=== PATIENT | female | born 1985 | race Caucasian/White ===

== ENCOUNTER → 2016-11-13 | Outpatient (CLI) | payer MEDICAID, OTHER ==
[~2016-11-13] MED LIST: AMPI250C9 PO; AMPI500C8 PO; FERR325T PO; PERC5TAB12 PO; PREN1CAP7 PO; PRENTAB16 PO; TIOC1OIN3 VAGINAL
[2016-11-13 12:35] LABS: BLOOD, URINE SMALL (NEG); GLUCOSE,URINE NEG (NEG); KETONE, URINE NEG (NEG); NITRITE,URINE NEG (NEG); SQUAMOUS EPITHELIAL CELL URINE 1 /hpf (0-5); URINE COLOR LIGHT-YELLOW (YELLW/STRAW)
[2016-11-13 12:36] LABS: AUTOMATED NEUTROPHIL # 6.5 TH/MM3 (1.8-7.7); BASOPHIL # 0.1 TH/MM3 (0-0.2); BASOPHIL % 0.7 % (0.0-2.0); EOSINOPHIL # 1.7 TH/MM3 (0-0.4); EOSINOPHIL % 16.8 % (0.0-4.0); HEMATOCRIT 29.7 % (35.0-46.0); LYMPH % 15.6 % (9.0-44.0); LYMPHOCYTE # 1.6 TH/MM3 (1.0-4.8); MEAN CELL VOLUME 62.4 FL (80.0-100.0); MEAN CORPUSCULAR HEMOGLOBIN 18.7 PG (27.0-34.0); MONO % 4.3 % (0.0-8.0); NEUT % 62.6 % (16.0-70.0); PLATELET COUNT 283 TH/MM3 (150-450); RED BLOOD COUNT 4.77 MIL/MM3 (4.00-5.30); RED CELL DISTRIBUTION WIDTH 23.4 % (11.6-17.2); WHITE BLOOD COUNT 10.4 TH/MM3 (4.0-11.0)
[2016-11-13 12:44] LABS: COMMENT (UR) CULT NOT INDICATED; CULTURE IF INDICATED CULT NOT INDICATED
[2016-11-13 12:46] LABS: HEMO FLAGS AUTO DIFF
[2016-11-13 13:49] LABS: RUBELLA IGG ANTIBODY 7.8 IU/mL (10.0-500.0); RUBELLA STATUS INDETERMINATE (IMMUNE)
[2016-11-13 14:57] LABS: OVALOCYTES 1+ (NORMAL); PLATELET ESTIMATE SMEAR NORMAL (NORMAL); PLATELET MORPHOLOGY NORMAL (NORMAL); SCAN/DIFF AUTO DIFF CONFIRMED; TARGET CELLS 1+ (NORMAL)
[2016-11-14 14:48] LABS: RAPID PLASMA REAGIN SCREEN NON-REACTIVE (NON-REACTVE)
== END ==
LOC: CLAB 11:47
PROVIDERS: ATTEND Family Medicine
DX: Z34.90 Encounter for supervision of normal pregnancy, unspecified, unspecified trimester (principal)
CPT/HCPCS: 81001; 83020; 85025; 86592; 86703; 86762; 86850; 86900; 86901; 87340

== ENCOUNTER → 2016-11-19 | Outpatient (CLI) | payer OTHER ==
[~2016-11-19] MED LIST changes: -PERC5TAB12 PO
== END ==
LOC: HPND 12:55
PROVIDERS: ATTEND Family Medicine
DX: Z36 Encounter for antenatal screening of mother (principal); Z34.01 Encounter for supervision of normal first pregnancy, first trimester; Z3A.13 13 weeks gestation of pregnancy
CPT/HCPCS: 76801

== ENCOUNTER → 2016-12-24 | Outpatient (CLI) | payer OTHER | LOC: HPND 08:08 | PROVIDERS: ATTEND Family Medicine | DX: Z34.81 Encounter for supervision of other normal pregnancy, first trimester (principal) | CPT/HCPCS: 76805 ==

== ENCOUNTER 2017-03-04 09:02 | Inpatient (IN) | payer MEDICAID, OTHER ==
[2017-03-04] VITALS (17 sets, daily range): BP systolic 90–104; BP diastolic 49–55; PULSE 82–115; RESP 16–18; TEMP 98.2–102.8; O2SAT 98–99
[~2017-03-04 09:02] MED LIST changes: -AMPI250C9 PO; -AMPI500C8 PO; -FERR325T PO; -PREN1CAP7 PO; -TIOC1OIN3 VAGINAL
[2017-03-04 09:36] LABS: MEAN CORPUSCULAR HGB CONC 29.9 % (32.0-36.0)
--- NOTE | 2017-03-04 09:39 | PD ---
HPI Chief Complaint Fever, backache Date Seen: March 04, 2017 Time Seen: 09:36 Travel History International Travel<30 Days: No Contact w/Intl Traveler<30Days: No History of Present Illness HPI 31 year old female at 33/1 weeks gestation presenting with fever, myalgias, and back pain for the past three days. She endorses intermittent cough , abdominal pain, low back pain, and headache. She denies dysuria. She endorses positive movement. Denies LOF or vaginal bleeding. Denies sick contacts or recent travel. Patient had late care with Dr. Wellington whom she has seen only once in October. She had 45 days of emergency Medicaid and it has run out. History Past Medical History Narrative Medical Anemia Obstetric History Obstetric History x 2 Miscarriage x 1 Family History Family History: Negative Social History Alcohol Use: No Tobacco Use: No Substance Abuse: No Allergies-Medications (Allergen,Severity, Reaction): Coded Allergies: No Known Allergies (Verified , 01/04/17) Home Meds Active Scripts Vit W/ Ferrous Fumara ( Complete 14-0.4 mg)1 Tab Tab1 Tab PO DAILY #90 TAB Ref 2 Prov:Elias Wellington MD R2 11/13/16 Review of Systems General / Constitutional: Fever, Chills HENT: Headaches Respiratory: Cough Gastrointestinal: Abdominal Pain, No: Nausea, Vomiting Genitourinary: No: Dysuria Neurologic: Headache Physical Exam BP 109/55 HR 102 RR 20 T 101.0 Narrative GENERAL: Well-nourished, well-developed female. SKIN: Warm and dry. HEENT: Normocephalic and atraumatic. No scleral icterus. No injection or drainage. No nasal drainage noted. Mucous membranes pink. Airway patent. NECK: Supple, trachea midline. No JVD. CARDIOVASCULAR: Regular rate and rhythm without murmurs, gallops, or rubs. RESPIRATORY: Breath sounds equal bilaterally. No accessory muscle use. ABDOMEN/GI: Abdomen soft, non-tender, bowel sounds present, no rebound, no guarding FHT's: Category: 2 Baseline: 160 Variability: minimal Decels: variables EXTREMITIES: No cyanosis or edema. BACK: Nontender without obvious deformity. Bilateral CVA tenderness. NEUROLOGICAL: Awake and alert. Normal speech. Data Data Vital Signs Reviewed: Yes Orders Vital Signs (Adult) .ON ADMISSION (03/04/17 09:35) ^ Labor Status (03/04/17 09:35) Urinalysis - C+S If Indicated (03/04/17 09:35) ^ Hydration (03/04/17 09:35) Cbc No Diff, Includes Plts (03/04/17 09:35) Lactated Ringer's 1000 Ml Inj (Lr 1000 M (03/04/17 11:00) Influenzae A/B Antigen (03/04/17 09:57) Urine Culture (03/04/17 09:29) Acetaminophen Inj (Ofirmev Inj) (03/04/17 10:30) Admit To Inpatient (03/04/17 ) Code Status (03/04/17 10:16) Vital Signs (Adult) Q4H (03/04/17 10:16) Activity Oob Ad Dorothy (03/04/17 10:16) Intake + Output HERIBERTO.QSHIFT (03/04/17 10:16) Diet Regular Basic (03/04/17 Lunch) Lactated Ringer's 1000 Ml Inj (Lr 1000 M (03/04/17 11:00) Sodium Chloride 0.9% Flush (Ns Flush) (03/04/17 10:30) Sodium Chloride 0.9% Flush (Ns Flush) (03/04/17 21:00) Acetaminophen (Tylenol) (03/04/17 10:30) Ondansetron Inj (Zofran Inj) (03/04/17 10:30) Basic Metabolic Panel (Bmp) (03/04/17 10:16) Complete Blood Count With Diff (03/05/17 06:00) Naloxone Inj (Narcan Inj) (03/04/17 10:30) Inpatient Certification (03/04/17 ) Basic Metabolic Panel (Bmp) (03/05/17 06:00) Type And Screen (03/04/17 10:21) Nystatin Liq (Mycostatin Liq) (03/04/17 10:30) Blood Culture (03/04/17 10:21) Labs Laboratory Tests Test 03/04/17 09:29 White Blood Count 22.3 TH/MM3 Red Blood Count 3.76 MIL/MM3 Hemoglobin 7.2 GM/DL Hematocrit 24.1 % Mean Corpuscular Volume 64.0 FL Mean Corpuscular Hemoglobin 19.1 PG Mean Corpuscular Hemoglobin 29.9 % Concent Red Cell Distribution Width 19.5 % Platelet Count 292 TH/MM3 Mean Platelet Volume 7.9 FL [facility] Medical Record Reviewed: Yes Interpretation(s) 31 year old female at 33/1 weeks with leukocytosis, fever, CVA tenderness, and U/A with positive nitrite and leukocyte esterase. She will be admitted for sepsis with source of pyelonephritis. CAT2 FHT based on tachycardia with minimal variability. Plan - Admit to antepartum floor - Monitor heart tracing - Check blood cultures and lactic acid - Urine culture pending - Rocephin 1 g IV Q24H - Tylenol PRN fever - Zofran PRN nausea FEN: - 1L LR bolus followed by 125 ml/hr - Regular diet dw Dr. Guillermo Diagnosis Diagnosis: Primary Impression: Pyelonephritis Additional Impression: Sepsis Priti Watson MD March 04, 2017 09:39
[2017-03-04 10:08] LABS: HEMATOCRIT 24.1 % (35.0-46.0); MEAN CORPUSCULAR HEMOGLOBIN 19.1 PG (27.0-34.0); PLATELET COUNT 292 TH/MM3 (150-450); RED BLOOD COUNT 3.76 MIL/MM3 (4.00-5.30); RED CELL DISTRIBUTION WIDTH 19.5 % (11.6-17.2); WHITE BLOOD COUNT 22.3 TH/MM3 (4.0-11.0)
[2017-03-04 10:10] LABS: REVIEW FLAG FINAL
[2017-03-04 10:17] LABS: BACTERIA, URINE MOD /hpf; BLOOD, URINE SMALL (NEG); COMMENT (UR) CULTURE INDICATED; CULTURE IF INDICATED CULTURE INDICATED; GLUCOSE,URINE NEG (NEG); KETONE, URINE 80 mg/dL (NEG); MUCUS URINE MOD /lpf (OCC); NITRITE,URINE POS (NEG); SQUAMOUS EPITHELIAL CELL URINE 21 /hpf (0-5); URINE COLOR YELLOW (YELLW/STRAW)
[2017-03-04] MEDS ORDERED: ONDANSETRON HCL 4 MG/2 ML VIAL IVP PRN (10:30)
[2017-03-04] MEDS ORDERED: SODIUM CHLORIDE 0.9% FLUSH 10 ML FLUSH IV FLUSH PRN (10:30)
[2017-03-04] MEDS ORDERED: NALOXONE HCL 0.4 MG/ML AMP IV PRN (10:30)
--- NOTE | 2017-03-04 10:35 | HHI.HP ---
History & Physical H&P HPI Chief Complaint Fever, backache Date Seen: March 04, 2017 Time Seen: 09:36 Travel History International Travel<30 Days: No Contact w/Intl Traveler<30Days: No History of Present Illness HPI 31 year old female at 33/1 weeks gestation presenting with fever, myalgias, and back pain for the past three days. She endorses intermittent cough , abdominal pain, low back pain, and headache. She denies dysuria. She endorses positive movement. Denies LOF, vaginal bleeding, nausea, vomiting, or diarrhea. Denies sick contacts or recent travel. Patient had late care with Dr. Wellington whom she has seen only once in October. She had 45 days of emergency Medicaid and it has run out. History (Limited) History Past Medical History Narrative Medical Anemia Obstetric History Obstetric History x 2 Miscarriage x 1 Family History Family History: Negative Social History Alcohol Use: No Tobacco Use: No Substance Abuse: No Allergies-Medications Allergies-Medications (Allergen,Severity, Reaction): Coded Allergies: No Known Allergies (Verified , 01/04/17) Home Meds Active Scripts Vit W/ Ferrous Fumara ( Complete 14-0.4 mg)1 Tab Tab1 Tab PO DAILY #90 TAB Ref 2 Prov:Elias Wellington MD R2 11/13/16 ROS Review of Systems General / Constitutional: Fever, Chills HENT: Headaches Respiratory: Cough Gastrointestinal: Abdominal Pain, No: Nausea, Vomiting Genitourinary: No: Dysuria Neurologic: Headache Physical Exam Physical Exam BP 109/55 HR 102 RR 20 T 101.0 Narrative GENERAL: Well-nourished, well-developed female. SKIN: Warm and dry. HEENT: Normocephalic and atraumatic. No scleral icterus. No injection or drainage. No nasal drainage noted. Mucous membranes dry and thrush present. Airway patent. NECK: Supple, trachea midline. No JVD. CARDIOVASCULAR: Regular rate and rhythm without murmurs, gallops, or rubs. RESPIRATORY: Breath sounds equal bilaterally. No accessory muscle use. ABDOMEN/GI: Abdomen soft, non-tender, bowel sounds present, no rebound, no guarding FHT's: Category: 2 Baseline: 160 Variability: minimal Decels: variables EXTREMITIES: No cyanosis or edema. BACK: Nontender without obvious deformity. Bilateral CVA tenderness. NEUROLOGICAL: Awake and alert. Normal speech. Data Data Data Vital Signs Reviewed: Yes Orders Vital Signs (Adult) .ON ADMISSION (03/04/17 09:35) ^ Labor Status (03/04/17 09:35) Urinalysis - C+S If Indicated (03/04/17 09:35) ^ Hydration (03/04/17 09:35) Cbc No Diff, Includes Plts (03/04/17 09:35) Lactated Ringer's 1000 Ml Inj (Lr 1000 M (03/04/17 11:00) Influenzae A/B Antigen (03/04/17 09:57) Urine Culture (03/04/17 09:29) Acetaminophen Inj (Ofirmev Inj) (03/04/17 10:30) Admit To Inpatient (03/04/17 ) Code Status (03/04/17 10:16) Vital Signs (Adult) Q4H (03/04/17 10:16) Activity Oob Ad Dorothy (03/04/17 10:16) Intake + Output HERIBERTO.QSHIFT (03/04/17 10:16) Diet Regular Basic (03/04/17 Lunch) Lactated Ringer's 1000 Ml Inj (Lr 1000 M (03/04/17 11:00) Sodium Chloride 0.9% Flush (Ns Flush) (03/04/17 10:30) Sodium Chloride 0.9% Flush (Ns Flush) (03/04/17 21:00) Acetaminophen (Tylenol) (03/04/17 10:30) Ondansetron Inj (Zofran Inj) (03/04/17 10:30) Basic Metabolic Panel (Bmp) (03/04/17 10:16) Complete Blood Count With Diff (03/05/17 06:00) Naloxone Inj (Narcan Inj) (03/04/17 10:30) Inpatient Certification (03/04/17 ) Basic Metabolic Panel (Bmp) (03/05/17 06:00) Type And Screen (03/04/17 10:21) Nystatin Liq (Mycostatin Liq) (03/04/17 10:30) Blood Culture (03/04/17 10:21) Labs Laboratory Tests Test 03/04/17 09:29 White Blood Count 22.3 TH/MM3 Red Blood Count 3.76 MIL/MM3 Hemoglobin 7.2 GM/DL Hematocrit 24.1 % Mean Corpuscular Volume 64.0 FL Mean Corpuscular Hemoglobin 19.1 PG Mean Corpuscular Hemoglobin 29.9 % Concent Red Cell Distribution Width 19.5 % Platelet Count 292 TH/MM3 Mean Platelet Volume 7.9 FL [facility] Medical Record Reviewed: Yes Interpretation(s) 31 year old female at 33/1 weeks with leukocytosis, fever, CVA tenderness, and U/A with positive nitrite and leukocyte esterase. She will be admitted for sepsis with source of pyelonephritis. CAT2 FHT based on tachycardia with minimal variability. Plan - Admit to antepartum floor - Monitor heart tracing - Check blood cultures and lactic acid - Urine culture pending - Rocephin 1 g IV Q24H - Nystatin swish for thrush - Tylenol PRN fever - Zofran PRN nausea FEN: - 1L LR bolus followed by 125 ml/hr - Regular diet vishal Guillermo Diagnosis Diagnosis: Primary Impression: Pyelonephritis Additional Impression: Sepsis Priti Watson MD March 04, 2017 10:35
[2017-03-04] MEDS ORDERED: LACTATED RINGER'S 1000 ML INJ 1,000 ML IV ONE (11:00)
[2017-03-04] MEDS ORDERED: ACETAMINOPHEN 1000 MG/100 ML VIAL IV ONE (11:00)
[2017-03-04] MEDS ORDERED: cefTRIAXone INJ 1,000 MG in SODIUM CHLORIDE 0.9% INJ 100 ML IV SCH (11:00)
[2017-03-04] MEDS: LACTATED RINGER'S 1000 ML INJ 1,000 ML IV SCH ×2 (11:16→19:32)
[2017-03-04 12:00] LABS: BICARBONATE 21.9 MEQ/L (21.0-32.0)
[2017-03-04] MEDS ORDERED: POTASSIUM CHLORIDE 20 MEQ CONTROLLED RELEASE TAB PO ONE (12:15)
[2017-03-04] MEDS: NYSTATIN SUSP 500,000 U/5 ML CUP SWISH-SWAL SCH ×4 (12:22→22:20)
[2017-03-04] MEDS: ACETAMINOPHEN 325 MG TAB PO PRN (18:41)
[2017-03-04 21:02] LABS: MEAN CORPUSCULAR HGB CONC 29.3 % (32.0-36.0)
[2017-03-04] MEDS ORDERED: ACETAMINOPHEN 1000 MG/100 ML VIAL IV PRN (22:00)
[2017-03-04] MEDS: SODIUM CHLORIDE 0.9% FLUSH 10 ML FLUSH IV FLUSH SCH (23:28)
[2017-03-05] VITALS (124 sets, daily range): BP systolic 89–106; BP diastolic 48–62; PULSE 65–102; RESP 16–18; TEMP 97.4–101.6; O2SAT 98–100
[2017-03-05] MEDS: LACTATED RINGER'S 1000 ML INJ 1,000 ML IV SCH ×3 (03:04→21:21)
[2017-03-05 06:00] LABS: AUTOMATED NEUTROPHIL # 15.5 TH/MM3 (1.8-7.7); BASOPHIL # 0.1 TH/MM3 (0-0.2); BASOPHIL % 0.4 % (0.0-2.0); EOSINOPHIL # 0.5 TH/MM3 (0-0.4); EOSINOPHIL % 2.7 % (0.0-4.0); HEMATOCRIT 25.5 % (35.0-46.0); LYMPH % 8.1 % (9.0-44.0); LYMPHOCYTE # 1.5 TH/MM3 (1.0-4.8); MEAN CELL VOLUME 65.2 FL (80.0-100.0); MEAN CORPUSCULAR HEMOGLOBIN 19.1 PG (27.0-34.0); MONO % 6.2 % (0.0-8.0); NEUT % 82.6 % (16.0-70.0); PLATELET COUNT 279 TH/MM3 (150-450); RED BLOOD COUNT 3.91 MIL/MM3 (4.00-5.30); RED CELL DISTRIBUTION WIDTH 20.2 % (11.6-17.2); WHITE BLOOD COUNT 18.8 TH/MM3 (4.0-11.0)
[2017-03-05 06:06] LABS: HEMO FLAGS AUTO DIFF
[2017-03-05 06:29] LABS: BICARBONATE 26.4 MEQ/L (21.0-32.0); POTASSIUM 3.8 MEQ/L (3.5-5.1)
[2017-03-05] MEDS: ACETAMINOPHEN 325 MG TAB PO PRN ×2 (07:50→17:43)
[2017-03-05 08:05] LABS: BANDS 24 % (0-6); CORRECTED NUCLEATED RBC 1 /100 WBC (0-0); EOSINOPHILS 3 % (0-4); NEUTROPHIL # MANUAL DIFF 17.1 TH/MM3 (1.8-7.7); POLYS (SEG NEUTROPHILS) 67 % (16-70); WBC DIFF SAMPLE 100
[2017-03-05 08:06] LABS: KERATOCYTES OCC (NORMAL); SCAN/DIFF FINAL DIFF MANUAL
[2017-03-05 08:07] LABS: ACANTHOCYTES OCC (NORMAL)
--- NOTE | 2017-03-05 08:14 | PD.OB.ANTE ---
Subjective Diagnosis: (1) Pyelonephritis Diagnosis: Principal (2) 33 weeks gestation of Diagnosis: Principal Interval History Ms. Burnette was febrile to 101.6F this morning; patient also reports headache, chest pain with respirations, and back pain. Patient reports that she is urinating normally. Objective Vital Signs Vital Signs Date Time Temp Pulse Resp B/P Pulse Ox O2 Delivery O2 Flow Rate FiO2 03/05/17 07:55 94 100 03/05/17 07:50 95 100 03/05/17 07:45 97 100 03/05/17 07:42 101.6 18 03/05/17 07:40 100 100 03/05/17 07:36 98 106/56 03/05/17 07:35 98 100 03/05/17 07:30 94 100 03/05/17 07:25 94 99 03/05/17 07:20 93 99 03/05/17 07:15 94 100 03/05/17 07:10 95 100 03/05/17 07:05 97 100 03/05/17 07:00 94 100 03/05/17 04:40 100 03/05/17 04:40 73 03/05/17 03:55 72 100 03/05/17 03:00 18 03/05/17 02:59 97.4 66 100/62 03/05/17 02:50 65 100 03/05/17 00:50 71 100 03/04/17 23:20 82 99 03/04/17 23:05 88 03/04/17 22:53 91 95/52 03/04/17 22:50 98 03/04/17 22:23 98.5 03/04/17 22:23 18 03/04/17 22:20 94 98 03/04/17 22:15 95 03/04/17 22:10 96 03/04/17 22:08 99 03/04/17 22:07 99 104/50 03/04/17 20:25 99.7 03/04/17 19:47 18 03/04/17 19:23 115 03/04/17 19:23 102.8 98/55 03/04/17 18:35 102.7 03/04/17 18:35 101.0 03/04/17 16:00 98.2 03/04/17 16:00 87 18 94/52 03/04/17 11:38 98.6 16 03/04/17 11:37 96 90/49 Lab & Micro Results Test 03/04/17 03/04/17 03/05/17 09:29 10:41 05:13 White Blood Count 22.3 TH/MM3 18.8 TH/MM3 Red Blood Count 3.76 MIL/MM3 3.91 MIL/MM3 Hemoglobin 7.2 GM/DL 7.5 GM/DL Hematocrit 24.1 % 25.5 % Mean Corpuscular Volume 64.0 FL 65.2 FL Mean Corpuscular Hemoglobin 19.1 PG 19.1 PG Mean Corpuscular Hemoglobin 29.9 % 29.3 % Concent Red Cell Distribution Width 19.5 % 20.2 % Platelet Count 292 TH/MM3 279 TH/MM3 Mean Platelet Volume 7.9 FL 7.8 FL Urine Color YELLOW Urine Turbidity CLOUDY Urine pH 6.0 Urine Specific [place] 1.021 Urine Protein 30 mg/dL Urine Glucose (UA) NEG mg/dL Urine Ketones 80 mg/dL Urine Occult Blood SMALL Urine Nitrite POS Urine Bilirubin NEG Urine Urobilinogen LESS THAN 2.0 MG/DL Urine Leukocyte Esterase LARGE Urine RBC 23 /hpf Urine WBC 133 /hpf Urine Squamous Epithelial 21 /hpf Cells Urine Amorphous Sediment OCC Urine Bacteria MOD /hpf Urine Mucus MOD /lpf Microscopic Urinalysis Comment CULTURE INDICATED Sodium Level 138 MEQ/L 139 MEQ/L Potassium Level 3.0 MEQ/L 3.8 MEQ/L Chloride Level 104 MEQ/L 107 MEQ/L Carbon Dioxide Level 21.9 MEQ/L 26.4 MEQ/L Anion Gap 12 MEQ/L 6 MEQ/L Blood Urea Nitrogen 4 MG/DL 4 MG/DL Creatinine 0.57 MG/DL 0.48 MG/DL Estimat Glomerular Filtration 124 ML/MIN 151 ML/MIN Rate Random Glucose 83 MG/DL 94 MG/DL Lactic Acid Level 1.6 mmol/L Calcium Level 8.0 MG/DL 8.2 MG/DL Blood Type O POSITIVE Antibody Screen NEGATIVE Neutrophils (%) (Auto) 82.6 % Lymphocytes (%) (Auto) 8.1 % Monocytes (%) (Auto) 6.2 % Eosinophils (%) (Auto) 2.7 % Basophils (%) (Auto) 0.4 % Neutrophils # (Auto) 15.5 TH/MM3 Lymphocytes # (Auto) 1.5 TH/MM3 Monocytes # (Auto) 1.2 TH/MM3 Eosinophils # (Auto) 0.5 TH/MM3 Basophils # (Auto) 0.1 TH/MM3 CBC Comment AUTO DIFF Date/Time Procedure Status Source Growth 03/04/17 10:53 Aerobic Blood Culture Received Blood Peripheral Pending 03/04/17 10:53 Anaerobic Blood Culture Received Blood Peripheral Pending 03/04/17 10:00 Influenza Types A,B Antigen (KEATON) - Final Complete Nasal Washing NEGATIVE FOR FLU A AND B ANTIGEN.... 03/04/17 09:29 Urine Culture Received Urine Clean Catch Pending Physical Exam GENERAL: Well-nourished, well-developed patient. CARDIOVASCULAR: Regular rate vs. mild tachycardia to ~105bpm, regular rhythm without murmurs. RESPIRATORY: CTAB, normal rate. ABDOMEN/GI: Abdomen soft, non-tender. Gravid EXTREMITIES: 1 + pitting edema. Calves non-tender, without signs of DVT. GENITOURINARY: Bilateral pain to percussion of CVA Intermittent contractions FHT's: Category: 1 Baseline: 150-160 Reactive: Y Variability: Mod Decels: None Assessment and Plan Problem List: (1) Pyelonephritis Status: Acute (2) 33 weeks gestation of Status: Acute Assessment & Plan: 31 yo at 33 2/7 weeks -Continue EFM -Cat 1 generally, intermittent mild tachycardia -Continue CTG -Occ contractions/irritability Pyelonephritis Impression: Fever, back pain, UA with nitrites, large WBC's, bacteria -Monitor Urine cultures -Pending -Monitor blood cultures -Pending -Continue LR at 125ml/hr -Monitor intake/output -s/p 1 L LR bolus on day of admission -Antibiotic therapy -Will increase Rocephin to 2gm IV daily -Consider renal US -Pain:- Tylenol PRN pain/fever -Oral 650mg q4hrs or 1000mg q8hrs - Zofran PRN nausea Kolton Pérez MD R2 March 05, 2017 08:14
[2017-03-05] MEDS: SODIUM CHLORIDE 0.9% FLUSH 10 ML FLUSH IV FLUSH SCH ×2 (09:00→21:00)
[2017-03-05] MEDS: NYSTATIN SUSP 500,000 U/5 ML CUP SWISH-SWAL SCH ×4 (09:38→21:21)
[2017-03-05] MEDS: cefTRIAXone INJ 2,000 MG in SODIUM CHLORIDE 0.9% INJ 100 ML IV SCH (10:33)
[2017-03-05] MEDS ORDERED: ACETAMINOPHEN 1000 MG/100 ML VIAL IV PRN (11:00)
[2017-03-06] VITALS (8 sets, daily range): BP systolic 94–104; BP diastolic 55–64; PULSE 71–81; RESP 16–18; TEMP 97.5–98.4
--- NOTE | 2017-03-06 08:15 | PD.OB.ANTE ---
Subjective Diagnosis: (1) Pyelonephritis Diagnosis: Principal (2) 33 weeks gestation of Diagnosis: Principal Interval History Ms. Burnette was afebrile overnight; last fever was 101.6F ~0800 /9 with borderline elevated temperature ~100F ~1700 /9. Patient reports mild headache but otherwise reports that she is doing better. Patient states that she is eating, drinking and urinating well. Patient reports mild pain with inspiration. No significant back pain reported. (Kolton Pérez MD R2) Objective Vital Signs Vital Signs Date Time Temp Pulse Resp B/P Pulse Ox O2 Delivery O2 Flow Rate FiO2 03/06/17 03:57 81 104/62 03/06/17 03:56 98.4 16 03/05/17 23:47 79 89/50 03/05/17 23:46 97.9 16 03/05/17 19:47 98.2 82 16 97/53 03/05/17 18:38 98.5 03/05/17 17:33 90 101/56 03/05/17 17:32 100.0 03/05/17 15:55 92 100 03/05/17 15:50 93 100 03/05/17 15:47 90 103/60 03/05/17 15:46 99.9 18 03/05/17 15:45 91 100 03/05/17 15:40 92 100 03/05/17 15:35 92 100 03/05/17 15:30 100 03/05/17 15:30 92 03/05/17 15:25 99 03/05/17 15:25 91 03/05/17 15:20 99 03/05/17 15:20 92 03/05/17 15:15 91 03/05/17 15:15 99 03/05/17 15:10 99 03/05/17 15:10 87 03/05/17 15:05 99 03/05/17 15:05 86 03/05/17 15:00 85 99 03/05/17 14:55 87 99 03/05/17 14:50 87 100 03/05/17 14:47 99.6 03/05/17 14:45 84 99 03/05/17 14:40 87 99 03/05/17 14:35 89 99 03/05/17 14:30 87 100 03/05/17 14:25 87 100 17 14:20 91 100 17 14:17 99.6 17 14:15 86 100 03/05/17 14:10 83 100 17 14:05 83 100 17 14:00 84 99 17 13:55 85 99 17 13:50 85 99 17 13:45 99.0 89 99 17 13:40 90 99 17 13:35 88 99 17 13:30 89 99 17 13:25 84 99 17 13:20 84 99 17 13:15 82 99 03/05/17 13:10 85 100 03/05/17 12:55 84 99 03/05/17 12:50 82 100 03/05/17 12:45 83 100 03/05/17 12:40 83 99 03/05/17 12:35 82 99 03/05/17 12:30 82 99 03/05/17 12:25 82 100 17 12:20 79 100 03/05/17 12:15 79 100 03/05/17 12:10 84 99 03/05/17 12:05 79 100 03/05/17 12:00 79 100 03/05/17 11:55 79 91/48 99 03/05/17 11:55 80 03/05/17 11:54 18 03/05/17 11:50 80 99 17 11:45 79 99 17 11:40 79 99 17 11:35 79 99 17 11:30 81 99 917 11:25 78 99 17 11:20 81 99 17 11:15 80 99 17 11:10 80 99 17 11:05 81 99 17 11:00 81 99 917 10:55 84 100 917 10:50 80 99 917 10:45 81 98 9/17 10:35 79 100 917 10:30 79 100 917 10:25 80 100 917 10:20 80 100 5/9/17 10:15 81 100 03/05/17 10:10 82 100 03/05/17 10:05 82 100 03/05/17 10:00 79 100 03/05/17 09:55 83 100 03/05/17 09:50 84 100 03/05/17 09:45 83 100 03/05/17 09:40 87 99 03/05/17 09:35 85 100 03/05/17 09:30 86 100 03/05/17 09:25 92 99 03/05/17 09:20 89 99 03/05/17 09:15 91 99 03/05/17 09:10 87 99 03/05/17 09:05 86 99 03/05/17 09:00 91 100 03/05/17 08:55 100 03/05/17 08:55 92 03/05/17 08:50 99 03/05/17 08:50 94 03/05/17 08:47 98.2 03/05/17 08:45 88 99 03/05/17 08:40 88 99 03/05/17 08:35 90 99 03/05/17 08:30 92 100 03/05/17 08:25 89 99 03/05/17 08:20 92 99 03/05/17 08:15 96 99 03/05/17 08:10 94 100 Lab & Micro Results Date/Time Procedure Status Source Growth 03/04/17 10:53 Aerobic Blood Culture - Preliminary Resulted Blood Peripheral NO GROWTH IN 1 DAY 03/04/17 10:53 Anaerobic Blood Culture - Preliminary Resulted Blood Peripheral NO GROWTH IN 1 DAY 03/04/17 10:00 Influenza Types A,B Antigen (KEATON) - Final Complete Nasal Washing NEGATIVE FOR FLU A AND B ANTIGEN.... 03/04/17 09:29 Urine Culture - Preliminary Resulted Urine Clean Catch Gram Negative Todd Physical Exam GENERAL: Well-nourished, well-developed patient. CARDIOVASCULAR: Regular rate, regular rhythm without murmurs. RESPIRATORY: CTAB, normal rate. ABDOMEN/GI: Abdomen soft, non-tender. Gravid EXTREMITIES: 1 + pitting edema. Calves non-tender, without signs of DVT. GENITOURINARY: Bilateral pain to percussion of CVA Intermittent contractions FHT's: Category: 1 Baseline: 130 Reactive: Y Variability: Mod Decels: None (Kolton Pérez MD R2) Assessment and Plan Problem List: (1) Pyelonephritis Status: Acute (2) 33 weeks gestation of Status: Acute Assessment & Plan: 31 yo at 33 3/7 weeks -Continue EFM -Cat 1 -Continue CTG -No contractions Pyelonephritis Impression: Initial presentation with fever, back pain, UA with nitrites, large WBC's, bacteria. -Monitor Urine cultures -Gram - rods; pending -Monitor blood cultures -Negative x1 day -Continue LR at 125ml/hr -Monitor intake/output -s/p 1 L LR bolus on day of admission -Antibiotic therapy -Continue Rocephin to 2gm IV daily -Plan to transition to oral antibiotics after 24hrs afebrile -Pain:- Tylenol PRN pain/fever -Oral 650mg q4hrs or 1000mg q8hrs - Zofran PRN nausea (Kolton Pérez MD R2) Assessment and Plan The exam, history, and the medical decision-making described in the above note were completed with the assistance of the resident provider. I reviewed and agree with the findings presented. I attest that I had a [id number] encounter with the patient on the same day, and personally performed and documented my assessment and findings in the medical record. (Gabby Stovall MD) Kolton Pérez MD R2 March 06, 2017 08:15 Gabby Stovall MD March 06, 2017 09:11
[2017-03-06] MEDS: ACETAMINOPHEN 325 MG TAB PO PRN ×2 (08:42→16:28)
[2017-03-06] MEDS: LACTATED RINGER'S 1000 ML INJ 1,000 ML IV SCH (08:55)
[2017-03-06] MEDS: SODIUM CHLORIDE 0.9% FLUSH 10 ML FLUSH IV FLUSH SCH (09:00)
[2017-03-06] MEDS: NYSTATIN SUSP 500,000 U/5 ML CUP SWISH-SWAL SCH ×2 (10:18→16:27)
[2017-03-06] MEDS: cefTRIAXone INJ 2,000 MG in SODIUM CHLORIDE 0.9% INJ 100 ML IV SCH (11:23)
[2017-03-07 03:07] VITALS: BP 95/52; PULSE 75; RESP 16; TEMP 98.2
[2017-03-07 07:40] VITALS: TEMP 98.1
[2017-03-07 07:41] VITALS: RESP 20
[2017-03-07 07:42] VITALS: BP 97/56; PULSE 70
--- NOTE | 2017-03-07 08:19 | PD.OB.ANTE ---
Subjective Diagnosis: (1) Pyelonephritis Diagnosis: Principal (2) 33 weeks gestation of Diagnosis: Principal Interval History Ms. Burnette was afebrile with stable vital signs overnight. Patient reports that she has mild sore throat but does not report headache, back pain, pain with urination, or other symptoms at this time. Patient states that she is able to ambulate well. Patient able to feel normal movement. Objective Vital Signs Vital Signs Date Time Temp Pulse Resp B/P Pulse Ox O2 Delivery O2 Flow Rate FiO2 03/07/17 07:42 70 97/56 03/07/17 07:41 20 03/07/17 07:40 98.1 03/07/17 03:07 75 95/52 03/07/17 03:07 98.2 16 03/06/17 23:06 76 100/58 03/06/17 23:06 98.1 16 03/06/17 19:21 97.9 16 03/06/17 19:21 79 94/55 03/06/17 16:23 71 03/06/17 16:23 98.0 18 03/06/17 16:23 98/64 03/06/17 13:18 97.5 03/06/17 09:42 18 03/06/17 08:30 79 97/59 03/06/17 08:29 98.4 18 Lab & Micro Results Date/Time Procedure Status Source Growth 03/04/17 10:53 Aerobic Blood Culture - Preliminary Resulted Blood Peripheral NO GROWTH IN 2 DAYS 03/04/17 10:53 Anaerobic Blood Culture - Preliminary Resulted Blood Peripheral NO GROWTH IN 2 DAYS 03/04/17 10:00 Influenza Types A,B Antigen (KEATON) - Final Complete Nasal Washing NEGATIVE FOR FLU A AND B ANTIGEN.... 03/04/17 09:29 Urine Culture - Final Complete Urine Clean Catch Escherichia Coli Physical Exam GENERAL: Well-nourished, well-developed patient. CARDIOVASCULAR: Regular rate and rhythm without murmurs, gallops, or rubs. RESPIRATORY: Breath sounds equal bilaterally. No accessory muscle use. ABDOMEN/GI: Abdomen soft, non-tender. Gravid EXTREMITIES: No cyanosis or edema, non-tender, without signs of DVT. GENITOURINARY: Uterine Contractions: None on CTG (~10 min of small CX at ~0830 03/07 which subsided spontaneously, subsequently none) FHT's: Category: 1 Baseline: 150 Reactive: Y Variability: Mod Decels: None Assessment and Plan Problem List: (1) Pyelonephritis Status: Acute (2) 33 weeks gestation of Status: Acute Assessment & Plan: 31 yo at 33 4/7 weeks -Continue EFM -Cat 1 -Continue CTG -No contractions Anemia Impression: Hgb 7.5 -Will start Ferrous Sulfate 325mg BID Pyelonephritis Impression: Initial presentation with fever, back pain, UA with nitrites, large WBC's, bacteria. -Monitor Urine cultures -E Coli, pansensitive -Monitor blood cultures -Negative x2 day -Continue LR at 125ml/hr -Monitor intake/output -s/p 1 L LR bolus on day of admission -Antibiotic therapy -Continue Rocephin to 2gm IV daily -Plan to transition to oral Keflex on discharge -Leukocytosis- WBC 18.8 03/05 -Will repeat CBC today to confirm downtrending -Pain:- Tylenol PRN pain/fever -Oral 650mg q4hrs or 1000mg q8hrs - Zofran PRN nausea -Planned follow-up with [facility] 03/12 at 9am; patient aware of appointment Assessment and Plan The exam, history, and the medical decision-making described in the above note were completed with the assistance of the resident provider. I reviewed and agree with the findings presented. I attest that I had a [id number] encounter with the patient on the same day, and personally performed and documented my assessment and findings in the medical record. Kolton Pérez MD R2 March 07, 2017 08:19
[2017-03-07] MEDS: NYSTATIN SUSP 500,000 U/5 ML CUP SWISH-SWAL SCH (09:26)
[2017-03-07 10:20] LABS: AUTOMATED NEUTROPHIL # 5.6 TH/MM3 (1.8-7.7); BASOPHIL % 0.6 % (0.0-2.0); EOSINOPHIL # 0.5 TH/MM3 (0-0.4); HEMATOCRIT 24.5 % (35.0-46.0); LYMPHOCYTE # 1.3 TH/MM3 (1.0-4.8); MEAN CELL VOLUME 64.2 FL (80.0-100.0); MEAN CORPUSCULAR HEMOGLOBIN 20.1 PG (27.0-34.0); MEAN CORPUSCULAR HGB CONC 31.3 % (32.0-36.0); MONO % 4.3 % (0.0-8.0); NEUT % 72.1 % (16.0-70.0); PLATELET COUNT 349 TH/MM3 (150-450); RED BLOOD COUNT 3.82 MIL/MM3 (4.00-5.30); RED CELL DISTRIBUTION WIDTH 19.9 % (11.6-17.2); WHITE BLOOD COUNT 7.8 TH/MM3 (4.0-11.0)
[2017-03-07 10:23] LABS: HEMO FLAGS AUTO DIFF
--- NOTE | 2017-03-07 10:23 | HHI.DCPOC ---
Discharge Care Plan Diagnosis: (1) 33 weeks gestation of (2) Pyelonephritis Report Symptoms to Your Doctor -Temperate above 100.5 degrees -Unusual pain or calf pain -Increased vaginal bleeding -Painful or difficulty urinating -Feelings of extreme sadness or anxiety after 2 weeks Goals to Promote Your Health * To prevent worsening of your condition and complications * To maintain your health at the optimal level Directions to Meet Your Goals Take your medications as prescribed Follow your dietary instruction Follow activity as directed Ensure plenty of rest for recovery Drink fluids for hydration Keep your appointments as scheduled Take your immunizations and boosters as scheduled If your symptoms worsen call your PCP, if no PCP go to Urgent Care Center or Emergency Room Smoking is Dangerous to Your Health. Avoid second hand smoke Call the 24-hour crisis hotline for domestic abuse at Kolton Pérez MD R2 March 07, 2017 10:23
[2017-03-07] MEDS ORDERED: AMPI500C8 PO (10:30)
[2017-03-07] MEDS ORDERED: TIOC1OIN3 VAGINAL (10:30)
[2017-03-07] MEDS ORDERED: AMPI250C9 PO (10:30)
[2017-03-07] MEDS ORDERED: FERR325T PO (10:30)
[2017-03-07] MEDS: cefTRIAXone INJ 2,000 MG in SODIUM CHLORIDE 0.9% INJ 100 ML IV SCH (11:00)
[2017-03-07 11:07] VITALS: BP 95/64; PULSE 79
[2017-03-07 11:41] LABS: BANDS 12 % (0-6); CORRECTED NUCLEATED RBC 1 /100 WBC (0-0); EOSINOPHILS 4 % (0-4); NEUTROPHIL # MANUAL DIFF 6.2 TH/MM3 (1.8-7.7); PLATELET ESTIMATE SMEAR NORMAL (NORMAL); PLATELET MORPHOLOGY NORMAL (NORMAL); POLYS (SEG NEUTROPHILS) 68 % (16-70); SCAN/DIFF FINAL DIFF MANUAL; WBC DIFF SAMPLE 100
[2017-03-07] MEDS ORDERED: FERROUS SULFATE 325 MG (65 MG ELEMENTAL IRON) TAB PO SCH (21:00)
[2017-03-12] MEDS ORDERED: AMPI500C8 PO (11:28)
[2017-03-12] MEDS ORDERED: PREN1CAP7 PO (12:02)
== END 2017-03-07 11:30 | disposition home or self-care (01) | DRG 781 ==
LOC: HOBED 09:02 → H2EA 10:28 → OBSVTOIN 10:28
PROVIDERS: ADMIT Obstetrics & Gynecology; ATTEND Obstetrics & Gynecology
DX: O23.03 Infections of kidney in pregnancy, third trimester (principal); A41.9 Sepsis, unspecified organism; O98.813 Other maternal infectious and parasitic diseases complicating pregnancy, third trimester; B37.0 Candidal stomatitis; O99.013 Anemia complicating pregnancy, third trimester; B96.20 Unspecified Escherichia coli [E. coli] as the cause of diseases classified elsewhere; Z3A.33 33 weeks gestation of pregnancy; D64.9 Anemia, unspecified; O09.33 Supervision of pregnancy with insufficient antenatal care, third trimester
CPT/HCPCS: 59025; 80048; 81001; 83605; 85007; 85027; 86850; 86900; 86901; 87040; 87077; 87086; 87186; 87804; 99284; J0131; J0696; J7120

== ENCOUNTER 2017-05-24 17:36 | Inpatient (IN) | payer MEDICAID ==
[2017-05-24] VITALS (10 sets, daily range): BP systolic 107–137; BP diastolic 55–91; PULSE 53–61; RESP 18; TEMP 97.6–98
[~2017-05-24 17:36] MED LIST changes: +FERR325T PO; +PREN1CAP7 PO
[2017-05-24] MEDS ORDERED: LACTATED RINGER'S 1000 ML INJ 1,000 ML IV PRN (18:21)
[2017-05-24] MEDS ORDERED: OXYTOCIN 30 UNITS-500ML PREMIX 500 ML IV SCH (18:30)
[2017-05-24] MEDS ORDERED: CITRIC ACID-SODIUM CITRATE LIQ 30 ML UDC PO SCH (18:30)
[2017-05-24] MEDS ORDERED: MINERAL OIL 10 ML VIAL TOPICAL PRN (18:30)
[2017-05-24] MEDS ORDERED: SODIUM CHLORID 0.9% 500 ML INJ 500 ML IV PRN (18:30)
[2017-05-24] MEDS ORDERED: LIDOCAINE HCL 1% 50 ML VIAL INFIL PRN (18:30)
[2017-05-24] MEDS ORDERED: LIDOCAINE HCL 1% 50 ML VIAL I-DERMAL PRN (18:30)
[2017-05-24] MEDS ORDERED: OXYTOCIN 30 UNITS-500ML PREMIX 500 ML IV ONE (18:30)
[2017-05-24] MEDS ORDERED: ONDANSETRON HCL 4 MG/2 ML VIAL IV PRN (18:30)
--- NOTE | 2017-05-24 18:31 | PD ---
HPI Chief Complaint Contractions and vaginal bleeding Date Seen: May 24, 2017 Time Seen: 18:45 (Francois Faustin MD R1) Travel History International Travel<30 Days: No Contact w/Intl Traveler<30Days: No Known Affected Area: No (Francois Faustin MD R1) History of Present Illness HPI Patient is a 31-year-old at 40 weeks and 2 days who presents with contractions and vaginal bleeding. [facility] All of her labs including GBS have been negative. She started experiencing pain this morning around 6 AM. She reported that her contractions were around 15 minutes apart at that time. Her pain increased from 6 AM until 1 PM. Around that time she started noticing spotting of blood from her vagina. Since 1 PM her contractions have gotten less intense and less frequent to about 20-25 minutes apart. She reports that she currently has low abdominal pain and low back pain, which she describes as a 5 out of 10. She denies any leakage of fluid. She reports movement. Patient is Swazi speaking only, but she is accompanied by her who knows some Monegasque and reports much of the history. Para: 2 : 3 (Francois Faustin MD R1) History Past Medical History Narrative Medical Iron deficiency anemia this , on iron supplement (Francois Faustin MD R1) Obstetric History Obstetric History Patient is a . She reports that she has 2 healthy children. She reports that the boy was SGA at less than 5 pounds. The girl was 7.5 pounds. Most recent OB ultrasound showed that the current is 7 lbs. 11 oz. (Francois Faustin MD R1) Past Surgical History Surgical History: No Previous Surgery (Francois Faustin MD R1) Family History Family History: Negative (Francois Faustin MD R1) Social History Narrative Social History Patient lives at home with her and 2 children. Alcohol Use: No Tobacco Use: No Substance Abuse: No (Francois Faustin MD R1) Allergies-Medications (Allergen,Severity, Reaction): Coded Allergies: No Known Allergies (Verified , 05/20/17) Home Meds Active Scripts W/O Vit A W/ Fe Fumar (Citranatal [place])27-1-260 Mg Cap1 Cap PO DAILY #90 CAP Ref 0 Prov:Saji King MD 03/12/17 Ferrous Sulfate 325 Mg [id number] Mg PO BID #60 TAB Prov:Kolton Pérez MD R2 03/07/17 Vit W/ Ferrous Fumara ( Complete 14-0.4 mg)1 Tab Tab1 Tab PO DAILY #90 TAB Ref 2 Prov:Elias Wellington MD R2 11/13/16 Review of Systems General / Constitutional: No: Fever, Chills Eyes: No: Blurred Vision, Visual changes HENT: No: Headaches Cardiovascular: No: Chest Pain or Discomfort, Edema Respiratory: Short of Breath (throughout the , she has shortness of breath in the morning, but gets better throughout the day) Gastrointestinal: Abdominal Pain, No: Nausea, Vomiting Genitourinary: No: Dysuria Musculoskeletal: Cramping (low abdominal and back pain), Pain (low abdominal and back pain), No: Edema Neurologic: No: Headache (Francois Faustin MD R1) Physical Exam Blood pressure 115/73, pulse 62, respiratory rate 20, temperature 98.8, pain 5 Narrative GENERAL: Well-nourished, well-developed female patient. SKIN: Warm and dry. HEAD: Normocephalic and atraumatic. EYES: No scleral icterus. No injection or drainage. ENT: No nasal drainage noted. Mucous membranes pink. Airway patent. NECK: Supple, trachea midline. No JVD. CARDIOVASCULAR: Regular rate and rhythm without murmurs, gallops, or rubs. RESPIRATORY: Breath sounds equal bilaterally. No accessory muscle use. ABDOMEN/GI: Abdomen soft, non-tender, bowel sounds present, no rebound, no guarding Gravid to 40 weeks size GENITOURINARY: Exam performed by Dr. Brown External Genitalia: intact and normal in appearance Cervix: Mid position Dilatation: 1-2 cm Effacement: % Station: -30 Presentation: Vertex Membranes: intact Uterine Contractions: None FHT's: Category: Category 1 Baseline: 135 Reactive: Reactive Variability: moderate Decels: A few variable decelerations noted EXTREMITIES: No cyanosis or edema. BACK: Nontender without obvious deformity. No CVA tenderness. NEUROLOGICAL: Awake and alert. Motor and sensory grossly within normal limits. Five out of 5 muscle strength in all muscle groups. Normal speech. (Francois Faustin MD R1) Data Data Vital Signs Reviewed: Yes Orders Admit To Inpatient (05/24/17 ) Code Status (05/24/17 18:21) Vital Signs (Adult) .Per protocol (05/24/17 18:21) Activity Oob Ad Dorothy (05/24/17 18:21) Heart (05/24/17 18:21) Amnioinfusion (05/24/17 18:21) Urinary Catheter Management .ONCE (05/24/17 18:21) Diet Liquid (05/24/17 Dinner) Lactated Ringer's 1000 Ml Inj (Lr 1000 M (05/24/17 18:21) Lactated Ringer's 1000 Ml Inj (Lr 1000 M (05/24/17 18:21) Sodium Chlorid 0.9% 500 Ml Inj (Ns 500 M (05/24/17 18:30) Sodium Chlor 0.9% 1000 Ml Inj (Ns 1000 M (05/24/17 18:41) Lidocaine 1% Inj (50 Ml) (Xylocaine 1% I (05/24/17 18:30) Citric Acid-Sodium Citrate Liq (Bicitra (05/24/17 18:30) Ondansetron Inj (Zofran Inj) (05/24/17 18:30) Fentanyl Inj (Fentanyl Inj) (05/24/17 18:30) Fentanyl Inj (Fentanyl Inj) (05/24/17 18:30) Complete Blood Count With Diff (05/24/17 18:21) Hold Clot (05/24/17 18:21) Abo/Rh Blood Type (05/24/17 18:21) Urinalysis - C+S If Indicated (05/24/17 18:21) Type And Screen (05/24/17 18:21) Resp Oxygen Non Rebreathe Mask (05/24/17 ) ^ Epidural / Intrathecal Infus (05/24/17 18:21) Oxytocin 30 Units-500ml Premix (Pitocin (05/24/17 18:30) Lidocaine 1% Inj (50 Ml) (Xylocaine 1% I (05/24/17 18:30) Light Mineral Oil (Muri-Lube Oil) (05/24/17 18:30) Inpatient Certification (05/24/17 ) ^ Non Stress Test (05/24/17 18:21) Response To Medication .Post New Med Administration, Reaction (05/24/17 18:21) ^ Discontinue Medication (05/24/17 18:21) Oxytocin 30 Units-500ml Premix (Pitocin (05/24/17 18:30) Ob (2e) Additional Admit Info (05/24/17 18:22) (Francois Faustin MD R1) MDM Plan Patient is a 31-year-old at 40 weeks and 2 days who presents with contractions and spotting. 1. admit for labor because of post dates and significant variable deceleration Admit to inpatient ABO/Rh blood type, hold clot, type and screen, CBC LR IV at 1 25 mL/h Oxytocin drip IV titration protocol The Citra, mineral oil Fentanyl for pain Zofran for nausea Discussed risks and benefits of epidural. Patient requested epidural. Monitor heart rate Monitor vital signs Monitor labor with tocometry Discussed with Dr. Brown (Francois Faustin MD R1) Attending Attestation Patient seen and evaluated with resident under direct supervision, agree with assessment and plan. (Dani Brown MD) Diagnosis Diagnosis: Primary Impression: 40 weeks gestation of Additional Impressions: Variable heart rate decelerations, antepartum Irregular contractions Uterine contractions during Francois Faustin MD R1 May 24, 2017 18:31 Dani Brown MD May 24, 2017 19:29
[2017-05-24] MEDS ORDERED: SODIUM CHLOR 0.9% 1000 ML INJ 1,000 ML IV PRN (18:41)
[2017-05-24 18:58] LABS: BLOOD, URINE NEG (NEG); COMMENT (UR) CULT NOT INDICATED; CULTURE IF INDICATED CULT NOT INDICATED; GLUCOSE,URINE NEG (NEG); KETONE, URINE NEG (NEG); NITRITE,URINE NEG (NEG); PH, URINE 5.5 (5.0-8.5); SQUAMOUS EPITHELIAL CELL URINE <1 /hpf (0-5); URINE COLOR LIGHT-YELLOW (YELLW/STRAW)
[2017-05-24 19:05] LABS: AUTOMATED NEUTROPHIL # 5.7 TH/MM3 (1.8-7.7); BASOPHIL # 0.1 TH/MM3 (0-0.2); BASOPHIL % 1.3 % (0.0-2.0); EOSINOPHIL # 1.1 TH/MM3 (0-0.4); EOSINOPHIL % 11.6 % (0.0-4.0); HEMATOCRIT 38.4 % (35.0-46.0); LYMPH % 19.7 % (9.0-44.0); LYMPHOCYTE # 1.8 TH/MM3 (1.0-4.8); MEAN CELL VOLUME 87.2 FL (80.0-100.0); MEAN CORPUSCULAR HGB CONC 33.2 % (32.0-36.0); MONO % 5.7 % (0.0-8.0); NEUT % 61.7 % (16.0-70.0); PLATELET COUNT 178 TH/MM3 (150-450); RED CELL DISTRIBUTION WIDTH 27.3 % (11.6-17.2); WHITE BLOOD COUNT 9.3 TH/MM3 (4.0-11.0)
[2017-05-24 19:08] LABS: HEMO FLAGS AUTO DIFF
--- NOTE | 2017-05-24 19:08 | HHI.HP ---
History & Physical H&P HPI HPI Chief Complaint Contractions and vaginal bleeding Date Seen: May 24, 2017 Time Seen: 18:45 Travel History International Travel<30 Days: No Contact w/Intl Traveler<30Days: No Known Affected Area: No History of Present Illness HPI Patient is a 31-year-old at 40 weeks and 2 days who presents with contractions and vaginal bleeding. [facility] All of her labs including GBS have been negative. She started experiencing pain this morning around 6 AM. She reported that her contractions were around 15 minutes apart at that time. Her pain increased from 6 AM until 1 PM. Around that time she started noticing spotting of blood from her vagina. Since 1 PM her contractions have gotten less intense and less frequent to about 20-25 minutes apart. She reports that she currently has low abdominal pain and low back pain, which she describes as a 5 out of 10. She denies any leakage of fluid. She reports movement. Patient is Divehi speaking only, but she is accompanied by her who knows some Libyan and reports much of the history. Para: 2 : 3 History (Limited) History Past Medical History Narrative Medical Iron deficiency anemia this , on iron supplement Obstetric History Obstetric History Patient is a . She reports that she has 2 healthy children. She reports that the boy was SGA at less than 5 pounds. The girl was 7.5 pounds. Most recent OB ultrasound showed that the current is 7 lbs. 11 oz. Past Surgical History Surgical History: No Previous Surgery Family History Family History: Negative Social History Narrative Social History Patient lives at home with her and 2 children. Alcohol Use: No Tobacco Use: No Substance Abuse: No Allergies-Medications Allergies-Medications (Allergen,Severity, Reaction): Coded Allergies: No Known Allergies (Verified , 05/20/17) Home Meds Active Scripts W/O Vit A W/ Fe Fumar (Citranatal [place])27-1-260 Mg Cap1 Cap PO DAILY #90 CAP Ref 0 Prov:Saji King MD 03/12/17 Ferrous Sulfate 325 Mg [id number] Mg PO BID #60 TAB Prov:Kolton Pérez MD R2 03/07/17 Vit W/ Ferrous Fumara ( Complete 14-0.4 mg)1 Tab Tab1 Tab PO DAILY #90 TAB Ref 2 Prov:Elias Wellington MD R2 11/13/16 ROS Review of Systems General / Constitutional: No: Fever, Chills Eyes: No: Blurred Vision, Visual changes HENT: No: Headaches Cardiovascular: No: Chest Pain or Discomfort, Edema Respiratory: Short of Breath (throughout the , she has shortness of breath in the morning, but gets better throughout the day) Gastrointestinal: Abdominal Pain, No: Nausea, Vomiting Genitourinary: No: Dysuria Musculoskeletal: Cramping (low abdominal and back pain), Pain (low abdominal and back pain), No: Edema Neurologic: No: Headache Physical Exam Physical Exam Blood pressure 115/73, pulse 62, respiratory rate 20, temperature 98.8, pain 5 Narrative GENERAL: Well-nourished, well-developed female patient. SKIN: Warm and dry. HEAD: Normocephalic and atraumatic. EYES: No scleral icterus. No injection or drainage. ENT: No nasal drainage noted. Mucous membranes pink. Airway patent. NECK: Supple, trachea midline. No JVD. CARDIOVASCULAR: Regular rate and rhythm without murmurs, gallops, or rubs. RESPIRATORY: Breath sounds equal bilaterally. No accessory muscle use. ABDOMEN/GI: Abdomen soft, non-tender, bowel sounds present, no rebound, no guarding Gravid to 40 weeks size GENITOURINARY: Exam performed by Dr. Brown External Genitalia: intact and normal in appearance Cervix: Mid position Dilatation: 1-2 cm Effacement: % Station: -30 Presentation: Vertex Membranes: intact Uterine Contractions: None FHT's: Category: Category 1 Baseline: 135 Reactive: Reactive Variability: moderate Decels: A few variable decelerations noted EXTREMITIES: No cyanosis or edema. BACK: Nontender without obvious deformity. No CVA tenderness. NEUROLOGICAL: Awake and alert. Motor and sensory grossly within normal limits. Five out of 5 muscle strength in all muscle groups. Normal speech. Data Data Data Vital Signs Reviewed: Yes Orders Admit To Inpatient (05/24/17 ) Code Status (05/24/17 18:21) Vital Signs (Adult) .Per protocol (05/24/17 18:21) Activity Oob Ad Dorothy (05/24/17 18:21) Heart (05/24/17 18:21) Amnioinfusion (05/24/17 18:21) Urinary Catheter Management .ONCE (05/24/17 18:21) Diet Liquid (05/24/17 Dinner) Lactated Ringer's 1000 Ml Inj (Lr 1000 M (05/24/17 18:21) Lactated Ringer's 1000 Ml Inj (Lr 1000 M (05/24/17 18:21) Sodium Chlorid 0.9% 500 Ml Inj (Ns 500 M (05/24/17 18:30) Sodium Chlor 0.9% 1000 Ml Inj (Ns 1000 M (05/24/17 18:41) Lidocaine 1% Inj (50 Ml) (Xylocaine 1% I (05/24/17 18:30) Citric Acid-Sodium Citrate Liq (Bicitra (05/24/17 18:30) Ondansetron Inj (Zofran Inj) (05/24/17 18:30) Fentanyl Inj (Fentanyl Inj) (05/24/17 18:30) Fentanyl Inj (Fentanyl Inj) (05/24/17 18:30) Complete Blood Count With Diff (05/24/17 18:21) Hold Clot (05/24/17 18:21) Abo/Rh Blood Type (05/24/17 18:21) Urinalysis - C+S If Indicated (05/24/17 18:21) Type And Screen (05/24/17 18:21) Resp Oxygen Non Rebreathe Mask (05/24/17 ) ^ Epidural / Intrathecal Infus (05/24/17 18:21) Oxytocin 30 Units-500ml Premix (Pitocin (05/24/17 18:30) Lidocaine 1% Inj (50 Ml) (Xylocaine 1% I (05/24/17 18:30) Light Mineral Oil (Muri-Lube Oil) (05/24/17 18:30) Inpatient Certification (05/24/17 ) ^ Non Stress Test (05/24/17 18:21) Response To Medication .Post New Med Administration, Reaction (05/24/17 18:21) ^ Discontinue Medication (05/24/17 18:21) Oxytocin 30 Units-500ml Premix (Pitocin (05/24/17 18:30) Ob (2e) Additional Admit Info (05/24/17 18:22) MDM MDM Plan Patient is a 31-year-old at 40 weeks and 2 days who presents with contractions and spotting. 1. admit for labor because of post dates and significant variable deceleration Admit to inpatient ABO/Rh blood type, hold clot, type and screen, CBC LR IV at 1 25 mL/h Oxytocin drip IV titration protocol The Citra, mineral oil Fentanyl for pain Zofran for nausea Discussed risks and benefits of epidural. Patient requested epidural. Monitor heart rate Monitor vital signs Monitor labor with tocometry Discussed with Dr. Brown Diagnosis Diagnosis: Primary Impression: 40 weeks gestation of Additional Impressions: Variable heart rate decelerations, antepartum Irregular contractions Uterine contractions during (Francois Faustin MD R1) H&P Patient seen and evaluated with resident under direct supervision, agree with assessment and plan. (Dani Brown MD) Francois Faustin MD R1 May 24, 2017 19:08 Dani Brown MD May 24, 2017 19:31
[2017-05-24 19:43] LABS: ACANTHOCYTES 1+ (NORMAL); BURR CELLS 1+ (NORMAL); PLATELET ESTIMATE SMEAR NORMAL (NORMAL); PLATELET MORPHOLOGY NORMAL (NORMAL); SCAN/DIFF AUTO DIFF CONFIRMED
[2017-05-24] MEDS: LACTATED RINGER'S 1000 ML INJ 1,000 ML IV SCH ×2 (21:45→21:59)
--- NOTE | 2017-05-24 22:30 | PD.LABORPN ---
Subjective Subjective Patient reports feeling contractions. She reports that the pain is helped with the pain medication. She denies any leakage of fluid. Her vaginal bleeding is still only spotting. She reports that she is feeling movement. (Francois Faustin MD R1) Objective Vital Signs Vital Signs Date Time Temp Pulse Resp B/P Pulse Ox O2 Delivery O2 Flow Rate FiO2 05/24/17 22:00 57 107/65 05/24/17 22:00 97.9 18 05/24/17 19:30 59 137/85 05/24/17 19:16 98.0 18 Objective Pelvic Exam: Cervix: [medium, midposition] Dilatation: [2cm] Effacement: [60%] Station: [-2] Presentation: [vertex] Membranes: [intact] Uterine Contractions: [q5-6min] FHT's: Category: [Cat I] Baseline: [125] Reactive: [reactive] Variability: [moderate] Decels: [early decel's] (Francois Faustin MD R1) Assessment/Plan Problem List: (1) 40 weeks gestation of (2) Irregular contractions (3) Variable heart rate decelerations, antepartum (4) Uterine contractions during Assessment and Plan - continue Pitocin - continue Fentanyl for pain - continue FHR monitoring - continue monitoring VS - continue tocometry - continue IVF w/d/w Dr. Brown (Francois Faustin MD R1) Assessment and Plan Patient seen and evaluated with resident under direct supervision, agree with assessment and plan. (Dani Brown MD) Francois Faustin MD R1 May 24, 2017 22:30 Dani Brown MD May 25, 2017 01:53
[2017-05-25] VITALS (71 sets, daily range): BP systolic 75–155; BP diastolic 47–113; PULSE 47–295; RESP 18; TEMP 97.7–98.2
[2017-05-25] MEDS ORDERED: fentaNYL 2MCG-BUPIV 0.125% INJ 100 ML ONE (00:32)
[2017-05-25] MEDS ORDERED: BUPIVACAINE HCL PF 0.25% 10 ML VIAL ONE (00:36)
--- NOTE | 2017-05-25 02:04 | PD.LABORPN ---
Subjective Subjective Patient is comfortable with epidural. Objective Vital Signs Vital Signs Date Time Temp Pulse Resp B/P Pulse Ox O2 Delivery O2 Flow Rate FiO2 05/25/17 01:25 60 05/25/17 01:16 53 110/58 05/25/17 01:10 65 05/25/17 01:05 59 05/25/17 01:05 62 128/82 05/25/17 01:03 18 05/25/17 01:01 61 131/79 05/25/17 01:00 56 05/25/17 01:00 18 05/25/17 00:55 69 129/77 05/25/17 00:50 65 136/98 05/25/17 00:50 59 05/25/17 00:45 62 150/95 05/25/17 00:41 85 148/91 05/25/17 00:36 58 155/94 05/25/17 00:35 57 05/25/17 00:34 145/87 05/25/17 00:25 48 05/25/17 00:25 48 05/25/17 00:16 47 126/86 05/25/17 00:16 47 126/86 05/25/17 00:09 50 142/94 05/25/17 00:09 50 142/94 05/25/17 00:07 58 05/25/17 00:07 58 05/25/17 00:01 98/61 05/25/17 00:01 98/61 05/24/17 23:51 97.6 05/24/17 23:50 18 05/24/17 23:48 61 129/71 05/24/17 23:30 56 126/91 05/24/17 23:16 55 113/70 05/24/17 23:01 56 127/70 05/24/17 22:49 127/55 05/24/17 22:49 53 18 05/24/17 22:00 57 107/65 05/24/17 22:00 97.9 18 05/24/17 19:30 59 137/85 05/24/17 19:16 98.0 18 Objective Pelvic Exam: Cervix: [-] Dilatation: [-5] Effacement: [100-] Station: [-2-] Presentation: [-v] Membranes: [ruptured-no fluid] Uterine Contractions: [-q2] FHT's: Category: [2-] Baseline: [120-] Reactive: [-] Variability: [mod-] Decels: [-variable] Now resolved bradycardia to the 80s which responded to discontinuation of Pitocin, IV fluid bolus and knee-chest position Internal uterine pressure catheter was placed and amnioinfusion was initiated. Assessment/Plan Assessment and Plan Assessment: Early active labor with resolved bradycardia, Cat 2 Plan: Continue intrauterine resuscitative measures and close observation. Dani Brown MD May 25, 2017 02:04
[2017-05-25 04:00] LABS: BLOOD GAS BASE EXCESS -0.4 mmol/L (-2-2); BLOOD GAS O2 HGB SATURATION 52 % (90-100); CORD BLOOD GAS HCO3 25 mmol/L (21-29); CORD BLOOD GAS PCO2 55 mmHG (34-78); CORD BLOOD GAS PH 7.29 (7.14-7.42); CORD BLOOD GAS PO2 27 mmHG (3.0-40.0); DRAW SITE CORD BLOOD; STAT YES
--- NOTE | 2017-05-25 04:14 | PD.OB.DELI ---
Delivery Date: May 25, 2017 Anesthesia: Epidural Episiotomy: None Vaginal Delivery: Normal Presentation: Occiput anterior Nuchal Cord: x1 (tight, clamped and cut) Delayed cord clamping (45 sec): No Infant: Female One Minute : 3 Five Minute : 9 Weight: 6 lbs Placenta: Spontaneous delivery, Intact, 3 vessel cord Laceration: Perineal laceration, 1 deg Repair: Vicryl running (3-0) Estimated blood loss: 400 Additional Information Head delivered in vertex OA presentation by maternal effort. Tight nuchal cord noted, clamped and cut. Prompt delivery of anterior shoulder by maternal effort. Terminal meconium noted upon delivery. Baby taken immediately to resuscitation table. Patient noted to have first degree perineal laceration at 6 o'clock. Repaired with running 3-0 Vicryl to reapproximate vaginal mucosa and perineal skin. Assisted by Dr. Robles. Supervised by Dr. Brown. (Francois Faustin MD R1) Attestation I was present for this delivery. (Dani Brown MD) Francois Faustin MD R1 May 25, 2017 04:14 Dani Brown MD May 25, 2017 08:39
[2017-05-25] MEDS ORDERED: OXYTOCIN 30 UNITS-500ML PREMIX 500 ML IV SCH (04:15)
[2017-05-25] MEDS ORDERED: ONDANSETRON ODT 4 MG TAB PO PRN (04:15)
[2017-05-25] MEDS ORDERED: DOCUSATE SODIUM 50 MG/SENNA 8.6 MG TAB PO PRN (04:15)
[2017-05-25] MEDS ORDERED: SODIUM CHLORIDE 0.9% FLUSH 10 ML FLUSH IV FLUSH PRN (04:15)
[2017-05-25] MEDS ORDERED: ALUMINUM/MAGNESIUM/SIMETH 30 ML CUP PO PRN (04:15)
[2017-05-25] MEDS ORDERED: oxyCODONE/ACETAMINOPHEN 5 MG/325 MG TAB PO PRN ×2 (04:15)
[2017-05-25] MEDS ORDERED: WITCH HAZEL 50%/GLYCERIN 12.5% 40 PAD JAR TOPICAL PRN (04:15)
[2017-05-25] MEDS ORDERED: BENZOCAINE 20% TOPICAL SPRAY 60 ML CAN TOPICAL PRN (04:15)
[2017-05-25] MEDS ORDERED: ZOLPIDEM TARTRATE 5 MG TAB PO PRN (04:15)
[2017-05-25] MEDS ORDERED: ePHEDrine/NS 25 MG/5 ML SYR IV PRN (07:45)
[2017-05-25] MEDS ORDERED: DO NOT ADMINISTER ANTICOAGULANTS PRN (07:45)
[2017-05-25] MEDS ORDERED: NO SYSTEM NARCOTICS PRN (07:45)
[2017-05-25] MEDS ORDERED: fentaNYL 2MCG-BUPIV 0.125% 100 ML EPIDURAL SCH (07:45)
[2017-05-25] MEDS ORDERED: SODIUM CHLORIDE 0.9% FLUSH 10 ML FLUSH IV FLUSH SCH (09:00)
--- NOTE | 2017-05-25 09:33 | HHI.OB ---
Subjective Post Day: 0 Remarks Patient is a 31-year-old delivered at 40 weeks and 3 days. Patient is day 0 after the. Patient's pain is well-controlled. Patient reports drinking without any nausea or vomiting. Patient reports minimal bleeding. Patient has not passed gas nor bowel movements. Patient is walking without lower extremity pain, but she does report some shortness of breath with walking. Patient reports desire for contraception with OCPs and bottle feeding. (Francois Faustin MD R1) Remarks Patient seen and evaluated with resident under direct supervision, agree with assessment and plan. (Dani Brown MD) Objective Vitals/I&O Vital Signs Date Time Temp Pulse Resp B/P Pulse Ox O2 Delivery O2 Flow Rate FiO2 05/25/17 08:40 98.0 50 18 101/65 05/25/17 07:15 56 128/78 05/25/17 07:14 120/83 05/25/17 07:07 124/77 05/25/17 06:45 52 104/76 05/25/17 06:36 18 05/25/17 06:31 50 111/68 05/25/17 06:30 18 05/25/17 06:15 18 05/25/17 06:15 55 105/60 05/25/17 06:00 18 05/25/17 06:00 52 105/63 05/25/17 05:45 52 101/59 05/25/17 05:45 18 05/25/17 05:42 52 93/55 05/25/17 05:38 98.2 05/25/17 05:30 93/56 05/25/17 05:30 59 18 05/25/17 05:20 64 89/47 05/25/17 05:13 18 05/25/17 05:09 62 05/25/17 05:00 95/54 05/25/17 05:00 18 05/25/17 04:46 56 102/59 05/25/17 04:44 18 05/25/17 04:34 54 135/69 05/25/17 04:02 97.7 05/25/17 04:02 18 05/25/17 04:02 18 05/25/17 04:02 97.7 05/25/17 04:01 68 139/74 05/25/17 03:50 60 05/25/17 03:46 111/57 05/25/17 03:40 86 05/25/17 03:40 86 05/25/17 03:31 54 146/71 05/25/17 03:30 53 05/25/17 03:25 60 05/25/17 03:20 51 05/25/17 03:16 50 131/83 05/25/17 03:10 51 05/25/17 03:05 61 05/25/17 03:01 130/113 05/25/17 03:00 18 05/25/17 02:55 57 05/25/17 02:45 57 111/82 05/25/17 02:40 53 05/25/17 02:35 59 05/25/17 02:32 106 92/61 05/25/17 02:31 159 75/59 05/25/17 02:20 70 05/25/17 02:15 58 133/105 05/25/17 02:15 295 05/25/17 02:10 49 05/25/17 02:05 49 05/25/17 02:00 64 122/91 05/25/17 02:00 97.9 05/25/17 02:00 18 05/25/17 01:55 55 05/25/17 01:45 119/75 05/25/17 01:40 57 05/25/17 01:30 110/57 05/25/17 01:29 103 05/25/17 01:25 60 05/25/17 01:16 53 110/58 05/25/17 01:10 65 05/25/17 01:05 59 05/25/17 01:05 62 128/82 05/25/17 01:03 18 05/25/17 01:01 61 131/79 05/25/17 01:00 56 05/25/17 01:00 18 05/25/17 00:55 69 129/77 05/25/17 00:50 65 136/98 05/25/17 00:50 59 05/25/17 00:45 62 150/95 05/25/17 00:41 85 148/91 05/25/17 00:36 58 155/94 05/25/17 00:35 57 05/25/17 00:34 145/87 05/25/17 00:25 48 05/25/17 00:25 48 05/25/17 00:16 47 126/86 05/25/17 00:16 47 126/86 05/25/17 00:09 50 142/94 05/25/17 00:09 50 142/94 05/25/17 00:07 58 05/25/17 00:07 58 05/25/17 00:01 98/61 05/25/17 00:01 98/61 05/24/17 23:51 97.6 05/24/17 23:50 18 05/24/17 23:48 61 129/71 05/24/17 23:30 56 126/91 05/24/17 23:16 55 113/70 05/24/17 23:01 56 127/70 05/24/17 22:49 127/55 05/24/17 22:49 53 18 05/24/17 22:00 57 107/65 05/24/17 22:00 97.9 18 05/24/17 19:30 59 137/85 05/24/17 19:16 98.0 18 Objective Remarks GENERAL: Well-nourished, well-developed patient. CARDIOVASCULAR: Regular rate and rhythm without murmurs, gallops, or rubs. RESPIRATORY: Breath sounds equal bilaterally. No accessory muscle use. ABDOMEN/GI: Abdomen soft, non-tender. Fundus: Firm, non-tender at umbilicus. GENITOURINARY: Light to moderate bleeding. EXTREMITIES: No cyanosis or edema, non-tender, without signs of DVT. Medications and IVs Current Medications Medications (Trade) Dose Ordered Sig/[facility] Route Start Time Stop Time Status Last Admin (NS Flush) 2 ml BID IV FLUSH 05/25/17 09:00 (NS Flush) 2 ml UNSCH PRN IV FLUSH 05/25/17 04:15 (Tylenol) 650 mg Q4H PRN PO 05/25/17 04:15 (Motrin) 600 mg Q6H PRN PO 05/25/17 04:15 (Percocet 5-325 Mg) 1 tab Q4H PRN PO 05/25/17 04:15 (Percocet 5-325 Mg) 2 tab Q4H PRN PO 05/25/17 04:15 (Americaine 20% Top Spr) 1 spray Q4H PRN TOPICAL 05/25/17 04:15 (Tucks Pads) 1 applic QID PRN TOPICAL 05/25/17 04:15 (Sarah-Colace) 2 tab Q12H PRN PO 05/25/17 04:15 (Ambien) 5 mg HS PRN PO 05/25/17 04:15 (M-M-R Ii Inj) 0.5 ml ONCE ONCE SQ 05/25/17 16:00 05/25/17 16:01 (Boostrix Inj) 0.5 ml ONCE ONCE IM 05/25/17 16:00 05/25/17 16:01 (Mag-Al Plus Susp Liq) 15 ml Q8H PRN PO 05/25/17 04:15 (Zofran Odt) 4 mg Q6H PRN PO 05/25/17 04:15 Miscellaneous Information No systemic narcotics to be given except... UNSCH PRN .XX 05/25/17 07:45 05/26/17 07:44 Miscellaneous Information DO NOT ADMINISTER ANY ANTICOAGUL... UNSCH PRN .XX 05/25/17 07:45 05/26/17 07:44 (fentaNYL 2MCG-BUPIV 0.125% INJ) 100 ml @ 0 mls/hr TITRATE EPIDURAL 05/25/17 07:45 (ePHEDrine/NS 25 MG/5 ML SYR) 10 mg UNSCH PRN IV 05/25/17 07:45 05/26/17 07:44 (Francois Faustin MD R1) Assessment/Plan Problem List: (1) 40 weeks gestation of (2) (spontaneous vaginal delivery) Assessment and Plan Patient is a 31-year-old delivered at 40 weeks and 3 days. Patient is day 0 after . Patient was counseled to do 6 weeks of pelvic rest. Patient was counseled to follow up in 6 weeks. Patient requested follow- up and contraception. --AF VSS --Continue routine care --Motrin and Percocet when necessary for pain --Encourage OOB --Pelvic rest for 6 weeks will need follow-up appointment at that time. --Contraception: OCPs --Anticipate discharge tomorrow or the next day Discharge Planning Anticipate discharge tomorrow the next day. (Francois Faustin MD R1) Francois Faustin MD R1 May 25, 2017 09:33 Dani Brown MD May 25, 2017 09:52
[2017-05-25] MEDS: IBUPROFEN 600 MG TAB PO PRN ×2 (14:34→20:32)
[2017-05-25] MEDS ORDERED: DIPHTH/TETANUS/ACEL PERTUSSIS (BOOSTER) 0.5 ML VIAL/PFS IM ONE (16:00)
[2017-05-25] MEDS ORDERED: MEASLES, MUMPS, RUBELLA VACCINE 0.5 ML VIAL SQ ONE (16:00)
[2017-05-26] MEDS: IBUPROFEN 600 MG TAB PO PRN ×2 (04:47→16:12)
[2017-05-26 08:00] VITALS: BP 111/67; PULSE 54; RESP 20; TEMP 98.3
--- NOTE | 2017-05-26 08:31 | HHI.OB ---
Subjective Post Day: 1 Remarks day #1. AFVSS overnight. Pain well-controlled. Decreased lochia. She is feeding the baby via bottle. Appetite good. No nausea or vomiting. Positive flatus. Positive bowel movement. Ambulating well. Denies calf pain, shortness of breath, or cough. Otherwise, she is doing well this morning and has no other complaints. (Eko,Rocío Donahue MD R1) Objective Vitals/I&O Vital Signs Date Time Temp Pulse Resp B/P Pulse Ox O2 Delivery O2 Flow Rate FiO2 05/25/17 20:00 97.8 50 18 106/68 05/25/17 08:40 98.0 50 18 101/65 Objective Remarks GENERAL: Well-nourished, well-developed patient. CARDIOVASCULAR: Regular rate and rhythm without murmurs, gallops, or rubs. RESPIRATORY: Breath sounds equal bilaterally. No accessory muscle use. ABDOMEN/GI: Abdomen soft, non-tender. Fundus: Firm, non-tender at umbilicus. GENITOURINARY: Light to moderate bleeding. EXTREMITIES: No cyanosis or edema, non-tender, without signs of DVT. Medications and IVs Current Medications Medications (Trade) Dose Ordered Sig/Stepan Route Start Time Stop Time Status Last Admin (NS Flush) 2 ml BID IV FLUSH 05/25/17 09:00 (NS Flush) 2 ml UNSCH PRN IV FLUSH 05/25/17 04:15 (Tylenol) 650 mg Q4H PRN PO 05/25/17 04:15 (Motrin) 600 mg Q6H PRN PO 05/25/17 04:15 05/26/17 04:47 (Percocet 5-325 Mg) 1 tab Q4H PRN PO 05/25/17 04:15 (Percocet 5-325 Mg) 2 tab Q4H PRN PO 05/25/17 04:15 (Americaine 20% Top Spr) 1 spray Q4H PRN TOPICAL 05/25/17 04:15 (Tucks Pads) 1 applic QID PRN TOPICAL 05/25/17 04:15 (Sarah-Colace) 2 tab Q12H PRN PO 05/25/17 04:15 (Ambien) 5 mg HS PRN PO 05/25/17 04:15 (Mag-Al Plus Susp Liq) 15 ml Q8H PRN PO 05/25/17 04:15 Ondansetron HCl 4 mg 4 mg Q6H PRN PO 05/25/17 04:15 (fentaNYL 2MCG-BUPIV 0.125% INJ) 100 ml @ 0 mls/hr TITRATE EPIDURAL 05/25/17 07:45 (Rocío Syed MD R1) Assessment/Plan Problem List: (1) 40 weeks gestation of (2) (spontaneous vaginal delivery) Assessment and Plan Patient is a 31-year-old delivered at 40 weeks and 3 days. Patient is day 1 after . --AFVSS --Continue routine care --Motrin and Percocet when necessary for pain --Encourage OOB --Pelvic rest for 6 weeks will need follow-up appointment at that time. --Contraception: OCPs --Anticipate discharge tomorrow Discharge Planning Anticipate discharge tomorrow (Rocío Syed MD R1) Attestation Agree with care and I have discussed with resident (Nataly Champion MD) Rocío Syed MD R1 May 26, 2017 08:31 Nataly Champion MD May 28, 2017 12:49
[2017-05-26] MEDS: ACETAMINOPHEN 325 MG TAB PO PRN (16:11)
[2017-05-26 20:00] VITALS: BP 103/70; PULSE 55; RESP 18; TEMP 98.8
[2017-05-27] MEDS: ACETAMINOPHEN 325 MG TAB PO PRN ×2 (00:06→10:16)
[2017-05-27] MEDS: IBUPROFEN 600 MG TAB PO PRN ×2 (00:06→10:16)
--- NOTE | 2017-05-27 07:10 | HHI.OB ---
Subjective Post Day: 2 Remarks Patient is a 31-year-old delivered at 40 weeks and 3 days. Patient is day 2 after . Patient's pain is well-controlled. Patient reports eating and drinking without any nausea or vomiting. Patient reports minimal bleeding. Patient has passed gas and bowel movements. Patient is walking without lower extremity pain or shortness of breath or chest pain. She denies any feelings of depression. Patient reports desire for contraception with OCPs and bottle feeding and breast-feeding. Objective Vitals/I&O Vital Signs Date Time Temp Pulse Resp B/P Pulse Ox O2 Delivery O2 Flow Rate FiO2 05/26/17 20:00 98.8 55 18 103/70 05/26/17 08:00 98.3 20 05/26/17 08:00 111/67 05/26/17 08:00 54 Objective Remarks GENERAL: Well-nourished, well-developed patient. CARDIOVASCULAR: Regular rate and rhythm without murmurs, gallops, or rubs. RESPIRATORY: Breath sounds equal bilaterally. No accessory muscle use. ABDOMEN/GI: Abdomen soft, non-tender. Fundus: Firm, non-tender at umbilicus. GENITOURINARY: Light bleeding. EXTREMITIES: No cyanosis or edema, non-tender, without signs of DVT. Medications and IVs Current Medications Medications (Trade) Dose Ordered Sig/Stepan Route Start Time Stop Time Status Last Admin (NS Flush) 2 ml BID IV FLUSH 05/25/17 09:00 (NS Flush) 2 ml UNSCH PRN IV FLUSH 05/25/17 04:15 (Tylenol) 650 mg Q4H PRN PO 05/25/17 04:15 05/27/17 00:06 (Motrin) 600 mg Q6H PRN PO 05/25/17 04:15 05/27/17 00:06 (Percocet 5-325 Mg) 1 tab Q4H PRN PO 05/25/17 04:15 (Percocet 5-325 Mg) 2 tab Q4H PRN PO 05/25/17 04:15 (Americaine 20% Top Spr) 1 spray Q4H PRN TOPICAL 05/25/17 04:15 (Tucks Pads) 1 applic QID PRN TOPICAL 05/25/17 04:15 (Sarah-Colace) 2 tab Q12H PRN PO 05/25/17 04:15 (Ambien) 5 mg HS PRN PO 05/25/17 04:15 (Mag-Al Plus Susp Liq) 15 ml Q8H PRN PO 05/25/17 04:15 Ondansetron HCl 4 mg 4 mg Q6H PRN PO 05/25/17 04:15 (fentaNYL 2MCG-BUPIV 0.125% INJ) 100 ml @ 0 mls/hr TITRATE EPIDURAL 05/25/17 07:45 Assessment/Plan Problem List: (1) 40 weeks gestation of (2) (spontaneous vaginal delivery) Assessment and Plan Patient is a 31-year-old delivered at 40 weeks and 3 days. Patient is day 2 after . --AFVSS --Continue routine care --Motrin and Percocet when necessary for pain --Encourage OOB --Pelvic rest for 6 weeks will need follow-up appointment at that time. --Contraception: OCPs upon d/c --Anticipate discharge today d/w Dr. Brown Discharge Planning Anticipate discharge today Francois Faustin MD R1 May 27, 2017 07:10
[2017-05-27 08:00] VITALS: BP 106/64; PULSE 51; RESP 16; TEMP 98
[2017-05-27] MEDS ORDERED: IBUP-232 PO (08:56)
--- NOTE | 2017-05-27 08:57 | HHI.DCPOC ---
Discharge Care Plan Diagnosis: (1) (spontaneous vaginal delivery) (2) 40 weeks gestation of Report Symptoms to Your Doctor -Temperature above 100.5 degrees -Redness, of incision or excessive or foul smelling drainage -Unusual pain or calf pain -Increased vaginal bleeding -Painful or difficulty urinating -Feelings of extreme sadness or anxiety after 2 weeks Goals to Promote Your Health * To prevent worsening of your condition and complications, please follow up with your doctor. * To maintain your health at the optimal level, please stay well hydrated, eat a balanced diet, and exercise. Directions to Meet Your Goals Take your medications as prescribed Follow your dietary instruction Follow activity as directed Ensure plenty of rest for recovery Drink fluids for hydration Keep your appointments as scheduled Take your immunizations and boosters as scheduled If your symptoms worsen call your PCP, if no PCP go to Urgent Care Center or Emergency Room Smoking is Dangerous to Your Health. Avoid second hand smoke Call the 24-hour crisis hotline for domestic abuse at Francois Faustin MD R1 May 27, 2017 08:57
== END 2017-05-27 14:23 | disposition home or self-care (01) | DRG 775 ==
LOC: HOBED 17:36 → H2EB 18:26 → H1EA 05-25 08:41
PROVIDERS: ADMIT Obstetrics & Gynecology; ATTEND Obstetrics & Gynecology
PROC: 10E0XZZ Delivery of Products of Conception, External Approach (ICD-10-PCS; principal; 2017-05-25)
PROC: 0HQ9XZZ Repair Perineum Skin, External Approach (ICD-10-PCS; 2017-05-25)
PROC: 3E0E7GC Introduction of Other Therapeutic Substance into Products of Conception, Via Natural or Artificial Opening (ICD-10-PCS; 2017-05-25)
PROC: 10H07YZ Insertion of Other Device into Products of Conception, Via Natural or Artificial Opening (ICD-10-PCS; 2017-05-25)
PROC: 3E0S3CZ (ICD-10-PCS; 2017-05-25)
PROC: 00HU33Z Insertion of Infusion Device into Spinal Canal, Percutaneous Approach (ICD-10-PCS; 2017-05-25)
DX: O99.013 Anemia complicating pregnancy, third trimester (principal); D50.9 Iron deficiency anemia, unspecified; O76 Abnormality in fetal heart rate and rhythm complicating labor and delivery; O70.0 First degree perineal laceration during delivery; O69.1XX0 Labor and delivery complicated by cord around neck, with compression, not applicable or unspecified; O48.0 Post-term pregnancy; Z3A.40 40 weeks gestation of pregnancy; Z37.0 Single live birth
CPT/HCPCS: 59025; 81001; 82805; 85025; 86850; 86900; 86901; 90715; J2405; J2590; J3010; J7120